=== PATIENT | male | born 1945 | race Caucasian/White ===

== ENCOUNTER 2022-07-12 12:43 | Observation (INO) | payer OTHER ==
[~2022-07-12] VITALS: Ht 172.7 cm; Wt 103.3 kg
[2022-07-12 11:23] LABS: BASOPHILS % (AUTO) 0.5 % (0.0-5.0); EOSINOPHILS % (AUTO) 0.9 % (0.0-8.0); HEMATOCRIT 40.3 % (42-54); LYMPHOCYTES % (AUTO) 18.4 % (21.0-51.0); MEAN CORPUSCULAR HEMOGLOBIN 31.6 pg (27.0-33.0); MEAN CORPUSCULAR HGB CONC 32.3 g/dL (32.0-36.0); MEAN CORPUSCULAR VOLUME 97.8 fL (79-99); MONOCYTES % (AUTO) 7.1 % (3.0-13.0); NEUTROPHILS % (AUTO) 72.8 % (40.0-77.0); PLATELET COUNT (AUTO) 195 K/uL (130-400); RED BLOOD CELL COUNT(AUTO) 4.12 MIL/uL (4.50-6.20); RED CELL DISTRIBUTION WIDTH 12.7 % (11.0-15.5); WHITE BLOOD COUNT (AUTO) 6.5 K/uL (4.8-10.8)
[2022-07-12 11:30] LABS: POTASSIUM 4.2 mmol/L (3.5-5.1)
[2022-07-14 13:25] VITALS: BP 133/71
[2022-07-14] MEDS ORDERED: APIX5TAB PO (14:11)
[2022-07-14] MEDS ORDERED: SIMV-43 PO (14:11)
[2022-07-14] MEDS ORDERED: TRAZ-187 PO (14:11)
[2022-07-14] MEDS ORDERED: OMEG100014 PO (14:11)
[2022-07-14] MEDS ORDERED: MELA10CA2 PO (14:11)
[2022-07-14] MEDS ORDERED: MULT-1289 PO (14:11)
[2022-07-14] MEDS ORDERED: GLUC1CAP14 PO (14:11)
[2022-07-14] MEDS ORDERED: TAMS-1 PO (14:11)
[2022-07-15] VITALS (26 sets, daily range): BP systolic 98–171; BP diastolic 45–85
[2022-07-15] MEDS ORDERED: BUPIVACAINE/EPI/PF 0.5% 30ML VIAL IJ ONE ×2 (05:01→07:50)
[2022-07-15] MEDS ORDERED: MORPHINE PF 100MG/10ML AMP IV ONE ×2 (05:02→07:50)
[2022-07-15] MEDS ORDERED: THROMBIN-JMI 20000 UNIT KIT TP ONE (05:02)
[2022-07-15] MEDS ORDERED: ESMOLOL HCL 10 MG/ML 10 ML VIAL ONE (05:09)
[2022-07-15] MEDS ORDERED: DEXMEDETOMIDINE HCL 200 MCG/2 ML VIAL IV ONE (05:09)
[2022-07-15] MEDS ORDERED: CEFAZOLIN SODIUM 1 GM VIAL ONE (06:09)
[2022-07-15] MEDS ORDERED: LACTATED RINGERS 1000ML 1,000 ML IV ONE (06:09)
[2022-07-15] MEDS ORDERED: ROCURONIUM 10MG/1ML SYR 10 MG/ML ML ONE ×2 (06:48→08:14)
[2022-07-15] MEDS ORDERED: FENTANYL CITRATE PF 50 MCG/1 ML 5ML AMP IV ONE (06:48)
[2022-07-15] MEDS ORDERED: PROPOFOL 10 MG/ML 20ML VIAL IV ONE (06:48)
[2022-07-15] MEDS ORDERED: MIDAZOLAM HCL 1 MG/ML 2ML VIAL ONE (07:12)
[2022-07-15] MEDS ORDERED: PHENYLEPHRINE HCL 10 MG/ML 1ML VIAL IV ONE (07:19)
[2022-07-15] MEDS ORDERED: DEXAMETHASONE SOD PHOSPHATE 10MG/ML 1ML VIAL ONE (07:36)
[2022-07-15] MEDS ORDERED: CEFAZOLIN SODIUM 1 GM VIAL IRRIG ONE (07:50)
[2022-07-15] MEDS ORDERED: CEFAZOLIN SODIUM 2 GM VIAL IVPB PRN (08:00)
[2022-07-15] MEDS ORDERED: ONDANSETRON 4MG INJ ONE (09:17)
[2022-07-15] MEDS ORDERED: GLYCOPYRROLATE 1 MG/5 ML SYRINGE ONE (10:28)
[2022-07-15] MEDS ORDERED: NEOSTIGMINE 5MG/5ML SYR IV ONE (10:29)
[2022-07-15] MEDS ORDERED: FENTANYL CITRATE PF 50 MCG/1 ML 2ML VIAL ONE (10:30)
[2022-07-15] MEDS ORDERED: EPHEDRINE SULFATE 50 MG/ML AMPULE ONE (10:36)
[2022-07-15] MEDS ORDERED: PROMETHAZINE HCL 25 MG/ML 1ML AMPULE IM PRN (11:00)
[2022-07-15] MEDS ORDERED: 0.9%NACL 10ML VIAL IVP PRN (11:00)
[2022-07-15] MEDS ORDERED: CEFAZOLIN SODIUM 2 GM VIAL IVP SCH (11:00)
[2022-07-15] MEDS ORDERED: MORPHINE 2 MG SYG IVP PRN (11:00)
[2022-07-15] MEDS ORDERED: HYDROCODONE/ACETAMINOPHEN 5/325 MG TAB PO PRN (11:00)
[2022-07-15] MEDS ORDERED: DEXAMETHASONE SOD PHOSPHATE 4 MG/ML 1ML VIAL IVP SCH (11:00)
[2022-07-15] MEDS: DEXAMETHASONE SOD PHOSPHATE 4 MG/ML 1ML VIAL IVP SCH (19:57)
[2022-07-15] MEDS: LACTATED RINGERS 1000ML 1,000 ML IV SCH ×2 (20:06→23:29)
[2022-07-15] MEDS ORDERED: SIMVASTATIN 20 MG TABLET PO SCH (21:00)
[2022-07-15] MEDS ORDERED: TRAZODONE HCL 100 MG TABLET PO SCH (21:00)
[2022-07-15] MEDS ORDERED: **HM**MELATONIN 10MG PO SCH (21:00)
[2022-07-15] MEDS ORDERED: TAMSULOSIN HCL 0.4 MG CAP.ER.24H PO SCH (21:00)
[2022-07-15] MEDS ORDERED: FAMOTIDINE 20MG TAB ONE (21:06)
[2022-07-15] MEDS ORDERED: FAMOTIDINE 20MG TAB PO ONE (21:30)
[2022-07-15] MEDS ORDERED: ONDANSETRON 4MG INJ IVP ONE (22:00)
[2022-07-15] MEDS ORDERED: HYDRALAZINE 20MG/ML VIAL ONE (22:52)
[2022-07-15] MEDS ORDERED: HYDRALAZINE 20MG/ML VIAL IV PRN (23:00)
[2022-07-15 23:05] LABS: BASOPHILS % (AUTO) 0.1 % (0.0-5.0); EOSINOPHILS % (AUTO) 0.1 % (0.0-8.0); HEMATOCRIT 38.3 % (42-54); LYMPHOCYTES % (AUTO) 3.5 % (21.0-51.0); MEAN CORPUSCULAR HEMOGLOBIN 31.5 pg (27.0-33.0); MEAN CORPUSCULAR HGB CONC 33.2 g/dL (32.0-36.0); MONOCYTES % (AUTO) 1.5 % (3.0-13.0); NEUTROPHILS % (AUTO) 94.5 % (40.0-77.0); PLATELET COUNT (AUTO) 198 K/uL (130-400); RED BLOOD CELL COUNT(AUTO) 4.03 MIL/uL (4.50-6.20); RED CELL DISTRIBUTION WIDTH 12.6 % (11.0-15.5); WHITE BLOOD COUNT (AUTO) 11.7 K/uL (4.8-10.8)
[2022-07-15 23:15] LABS: CREATININE 0.8 mg/dL (0.5-1.5); POTASSIUM 4.3 mmol/L (3.5-5.1)
[2022-07-15 23:20] LABS: ALBUMIN 3.5 g/dL (3.5-5.0)
[2022-07-16] VITALS: BP 150/82
[2022-07-16] MEDS ORDERED: PANTOPRAZOLE 40 MG/VIAL ONE (02:29)
[2022-07-16] MEDS: PANTOPRAZOLE 40 MG/VIAL IVP SCH ×2 (02:30→09:23)
[2022-07-16] MEDS ORDERED: PANTOPRAZOLE 40 MG/VIAL IVP SCH (02:30)
[2022-07-16] MEDS: DEXAMETHASONE SOD PHOSPHATE 4 MG/ML 1ML VIAL IVP SCH ×2 (02:39→09:23)
[2022-07-16 02:53] LABS: HEMATOCRIT 37.4 % (42-54)
[2022-07-16 04:00] VITALS: BP 150/88
[2022-07-16 08:00] VITALS: BP 128/69
[2022-07-16] MEDS ORDERED: GLUCOSAMINE-CHONDROITIN PO SCH (09:00)
[2022-07-16] MEDS ORDERED: MULTIVITAMIN WITH MINERALS TABLET PO SCH (09:00)
[2022-07-16] MEDS ORDERED: FISH OIL 1000 MG/CAP PO SCH (09:00)
[2022-07-16 10:01] LABS: CREATININE 0.9 mg/dL (0.5-1.5); MAGNESIUM 1.8 mg/dL (1.80-2.40); POTASSIUM 4.2 mmol/L (3.5-5.1)
[2022-07-16] MEDS: LACTATED RINGERS 1000ML 1,000 ML IV SCH (10:52)
[2022-07-16 11:28] VITALS: BP 132/83
== END 2022-07-16 13:15 | disposition home or self-care (01) ==
LOC: EDSTATUS 13:00 → DAHIP 07-15 05:53 → 4CH 07-15 12:00
PROVIDERS: ADMIT Neurological Surgery; ATTEND Neurological Surgery
DX: M48.061 Spinal stenosis, lumbar region without neurogenic claudication (principal); Z20.822 Contact with and (suspected) exposure to COVID-19; I10 Essential (primary) hypertension; I48.0 Paroxysmal atrial fibrillation; E66.01 Morbid (severe) obesity due to excess calories; E78.5 Hyperlipidemia, unspecified; N40.0 Benign prostatic hyperplasia without lower urinary tract symptoms; Z79.899 Other long term (current) drug therapy
CPT/HCPCS: 80051; 85025 ×2; 87426; 36415 ×3; 71045; 63047; 63048 ×2; 96374; 96376 ×2; 96372; 96375 ×2; 84484; 80053; 72020; 83735; 80048; 85014; 85018; 74018; 93005; J1100 ×6; G0378 ×25; A4510; A4663; J7040; J7120 ×4; A4344; J3010 ×2; J0690 ×3; J3490 ×6; J2710; J2550; J0360; J2250; J2704; J2274 ×2; J2405 ×2; J2370; A4649 ×2; A4215; A4223; A4222; A4221; A4600; C9113 ×2